=== PATIENT | male | born 1990 | race Caucasian/White ===

== ENCOUNTER 2018-11-22 20:46 | Emergency (ER) | payer OTHER ==
--- NOTE | 2018-11-22 20:57 | PDOC ---
Rapid Medical Evaluation Chief Complaint: Respiratory Time Seen by Provider: 11/22/18 20:55 Medical Evaluation: Allergies Allergy/AdvReac Type Severity Reaction Status Date / Time No Known Allergies Allergy Verified 11/29/12 07:24 11/22/18 20:56 I have performed a brief in person evaluation of this patient. CC: Fever HPI: Pt is a 28 YO male who states he had an abrupt onset of fever and myalgias. Did not receive influenza vaccination. Motrin 400 mg at 1999. No Tylenol. PE: Skin: Clear Lungs: Clear Heart:RRR MS: Moves all extremities without difficulty Neuro: Alert and oriented Psych: Appropriate affect I have ordered the following: Influenza swab Pt will proceed to [facility] for further evaluation. Discharge Disposition - Diagnosis Fever Qualifiers: Fever type: due to other condition Qualified Code(s): R50.81 - Fever presenting with conditions classified elsewhere - Referrals - Patient Instructions - Post Discharge Activity
[2018-11-22 21:01] VITALS: BMI 33.4
[2018-11-22] MEDS ORDERED: SODIUM CHLORIDE 0.9% 500 ML INFUS.BAG IV ONE ×2 (21:12→21:31)
[2018-11-22] MEDS ORDERED: ACETAMINOPHEN 1000 MG/100 ML VIAL (NON FORMULARY) IVPB ONE (21:12)
--- NOTE | 2018-11-22 21:12 | PDOC ---
History of Present Illness - General Chief Complaint: Respiratory Stated Complaint: FEVER CHILLS Time Seen by Provider: 11/22/18 20:55 - History of Present Illness Initial Comments: 11/22/18 21:12 The patient is a 28 year old male with no reported significant PMH who presents to our ED c/o 3 day h/o fever (Tmax 104) and sore throat. States he has been taking Motrin (400 mg) once or twice daily for his fever but as his symptoms persisted he decided to come to the ED. Endorses h/o non-productive cough for 1 -2 weeks duration. Tolerating PO intake.The patient not receive the Influenza vaccine this year. Notes onset of his symptoms followed an evening of binge drinking. The patient denies chest pain, shortness of breath abdominal pain, nausea/ vomiting, diarrhea/constipation, dysuria/hematuria, recent travels or sick contacts. NKDA Surgical: none reported Social: daily marijuana, binge alcohol, denies other toxic habits PMD: Dr. Rendon As per EMR patient last evaluated in 2012 for finger laceration Past History - Past Medical History Allergies/Adverse Reactions: Allergies Allergy/AdvReac Type Severity Reaction Status Date / Time No Known Allergies Allergy Verified 11/22/18 21:01 Home Medications: Ambulatory Orders NK [No Known Home Medication] 11/22/18 Anemia: No Asthma: No Cancer: No Cardiac Disorders: No CVA: No COPD: Yes CHF: No Dementia: No Diabetes: No GI Disorders: No Disorders: No HTN: No Hypercholesterolemia: No Liver Disease: No Seizures: No Thyroid Disease: No - Surgical History Abdominal Surgery: No Appendectomy: Yes Cardiac Surgery: No Cholecystectomy: No Lung Surgery: No Neurologic Surgery: No Orthopedic Surgery: No - Immunization History Immunization Up to Date: Yes - Suicide/Smoking/Psychosocial Hx Smoking Status: Yes Smoking History: Never smoked Have you smoked in the past 12 months: No Number of Cigarettes Smoked Daily: 1 Information on smoking cessation initiated: No Hx Alcohol Use: Yes Drug/Substance Use Hx: Yes Review of Systems - Review of Systems Constitutional: Yes: Fever HEENTM: Yes: Throat Pain. No: Recent change in vision Respiratory: Yes: Cough. No: Shortness of Breath, Productive cough, Hemoptysis Cardiac (ROS): No: Chest Pain, Lightheadedness, Palpitations, Syncope ABD/GI: No: Constipated, Diarrhea, Nausea, Vomiting, Abdominal cramping *Physical Exam - Vital Signs Last Vital Signs Temp Pulse Resp BP Pulse Ox 102.5 F H 132 H 18 125/59 L 97 11/22/18 20:57 11/22/18 20:57 11/22/18 20:57 11/22/18 20:57 11/22/18 20:57 - Physical Exam General Appearance: Yes: Nourished, Appropriately Dressed HEENT: positive: Normal Voice, Hearing Grossly Normal Neck: positive: Trachea midline, Supple Respiratory/Chest: positive: Lungs Clear, Normal Breath Sounds Cardiovascular: positive: S1, S2. negative: Edema, JVD, Murmur Gastrointestinal/Abdominal: positive: Normal Bowel Sounds, Soft Musculoskeletal: negative: CVA Tenderness (R), CVA Tenderness (L) Extremity: positive: Normal Capillary Refill, Normal Inspection Integumentary: positive: Normal Color, Dry, Warm, Diaphoresis Neurologic: positive: Fully Oriented, Alert Moderate Sedation - Procedure Monitoring Vital Signs: Procedure Monitoring Vital Signs Temperature 102.5 F H 11/22/18 20:57 Pulse Rate 132 H 11/22/18 20:57 Respiratory Rate 18 11/22/18 20:57 Blood Pressure 125/59 L 11/22/18 20:57 O2 Sat by Pulse Oximetry (%) 97 11/22/18 20:57 ED Treatment Course - LABORATORY CBC & Chemistry Diagram: 11/22/18 22:45 11/22/18 22:45 Medical Decision Making - Medical Decision Making 11/22/18 21:32 28 year old male w/fever, possibly under medicating for fever. Febrile (102.4 ) and Tachycardic (132) @ presentation. Frontal diagnosis: Influenza A/B, Viral Syndrome less likely PNA, UTI. Consider pulmonary embolism, however patient's clinical history and presentation make this diagnosis less likely and will refrain from CTA at this time. Will give Tylenol, IV hydration, CXR, blood cultures. Reassess. 11/22/18 21:46 Influenza A/B negative Strep negative 11/22/18 23:24 CBC unremarkable CMP, CXR pending 11/23/18 00:17 CMP shows ALT 277, AST 110 - likely 2/2 to recent alcohol binge drinking My read of CXR shows no consolidation/infiltrate, clear costophrenic angles, no cardiomegaly 11/23/18 00:20 Patient reassessed @ bedside. Symptomatically improved. At this time patient is safe for discharge home and symptomatic care for fever. Will call with positive blood cultures, though low clinical suspicion. Clinical Impression: Viral Syndrome *DC/Admit/Observation/Transfer Diagnosis at time of Disposition: Fever Qualifiers: Fever type: due to other condition Qualified Code(s): R50.81 - Fever presenting with conditions classified elsewhere - Discharge Dispostion Disposition: HOME Condition at time of disposition: Good - Referrals Referrals: Marcell Suggs MD [Primary Care Provider] - - Patient Instructions Printed Discharge Instructions: DI for Fever (Symptom) -- Adult Additional Instructions: You can take Tylenol (up to 4000 mg daily) alternating with Motrin (up to 3200 mg daily in 800 mg increments) for fever. Drink plenty of fluids and practice good hand washing hygiene. Follow up with your primary care doctor in the next 3 days. Your care is not complete until you are evaluated by your primary care doctor. Return to the Emergency Department for any new/worsening/concerning symptoms. - Post Discharge Activity
--- NOTE | 2018-11-22 21:13 | PDOC ---
Attending Attestation - HPI HPI: 11/22/18 21:47 The patient is a 28 year old male with no PMH who presents to the ED with fever and sore throat. He states he has been taking Motrin at home but noticed the fever persisted prompting him to come to the ER for an evaluation. Patient has a fever of 102.5 here in the ER. The patient denies chest pain, shortness of breath, headache and dizziness. Denies chills, nausea, vomit, diarrhea and constipation. Denies dysuria, frequency, urgency and hematuria. Allergies: NKA Past surgical history: None reported. Social history: No reported alcohol, drug or cigarette use. PCP: Dr. Rendon - Physicial Exam PE: 11/22/18 21:52 Agree with resident's exam. <Vioelta Doll - Last Filed: 11/22/18 21:52> - Resident Resident Name: Marychuy Neville - ED Attending Attestation I have performed the following: I have examined & evaluated the patient, The case was reviewed & discussed with the resident, I agree w/resident's findings & plan - Medical Decision Making 11/22/18 22:26 28-year-old male with fever dry cough and sore throat Incidental finding of a superficial burn to the uvula noted on exam Rapid strep and influenza swabs negative Due to persistent fever, basic labs as well as blood cultures and chest x-ray ordered IV fluid normal saline 1 L bolus given Plan for likely discharged home pending results <Meliza Sutherland - Last Filed: 11/22/18 22:27>
[2018-11-22] MEDS ORDERED: ACETAMINOPHEN INJECTION 100 ML IVPB ONE (22:55)
[2018-11-22 22:57] LABS: BASO % 0.6 % (0-2.0); EOS % 0.4 % (0-4.5); HEMATOCRIT 47.6 % (35.4-49); HEMOGLOBIN 16.8 GM/dL (11.7-16.9); MCH 31.8 pg (25.7-33.7); MCHC 35.2 g/dl (32.0-35.9); MEAN CELL VOLUME 90.1 fl (80-96); MEAN PLT VOLUME 8.5 fl (7.5-11.1); MONO % 13.4 % (3.8-10.2); NEUT % 70.6 % (42.8-82.8); PLATELET COUNT 256 K/MM3 (134-434); RBC 5.28 M/mm3 (4.00-5.60); RDW 13.6 % (11.9-15.9); WHITE BLOOD COUNT 9.5 K/mm3 (4.0-10.0)
[2018-11-22 23:37] LABS: ALBUMIN 4.3 g/dl (3.4-5.0); ALK PHOS 127 U/L (45-117); BILIRUBIN,TOTAL 0.4 mg/dL (0.2-1); BLOOD UREA NITROGEN 11 mg/dL (7-18); CHLORIDE 101 mmol/L (98-107); CO2 28 mmol/L (21-32); CREATININE 1.2 mg/dL (0.55-1.3); GLUCOSE,RANDOM 91 mg/dL (74-106); SGPT/ALT 277 U/L (13-61); SODIUM 136 mmol/L (136-145); TOT PROT 8.3 g/dl (6.4-8.2)
[2018-11-22 23:38] LABS: ANION GAP 8 MMOL/L (8-16); POTASSIUM 4.4 mmol/L (3.5-5.1); SGOT/AST 110 U/L (15-37)
[2018-11-23 00:25] VITALS: BP 117/72; PULSE 90; TEMP 98.8
== END 2018-11-23 00:41 | disposition home or self-care (01) ==
LOC: JER 20:46
PROC: 3E033NZ Introduction of Analgesics, Hypnotics, Sedatives into Peripheral Vein, Percutaneous Approach (ICD-10-PCS; principal; 2018-11-22)
DX: R50.9 Fever, unspecified (principal)
CPT/HCPCS: 36415; 71046-TC-FY; 80053; 85025; 87040; 87070; 87804; 87880; 96374; 99284-25; J0131

== ENCOUNTER 2019-01-31 15:22 | Emergency (ER) | payer OTHER ==
--- NOTE | 2019-01-31 15:26 | PDOC ---
Rapid Medical Evaluation Chief Complaint: Pain Time Seen by Provider: 01/31/19 15:24 Medical Evaluation: Allergies Allergy/AdvReac Type Severity Reaction Status Date / Time No Known Allergies Allergy Verified 11/22/18 21:01 01/31/19 15:25 I have performed a brief in person evaluation at triage on this patient. CC: left fourth digit discomfort HPI: Pt states that he "dislocated his ring finger"/4th digit left hand. PE: Skin: clear Lungs: clear Heart: RRR MS: Pt has deformity to the distal aspect of the fourth digit left hand. Neuro: Alert and oriented Psych: Appropriate affect I have ordered: pt has an xray on disk from earlier today. Pt will proceed to [facility] for further evaluation. Discharge Disposition - Diagnosis Finger pain, left - Referrals - Patient Instructions - Post Discharge Activity
[2019-01-31 15:27] VITALS: BP 144/93; PULSE 73; TEMP 98.4; BMI 34.9
--- NOTE | 2019-01-31 15:46 | PDOC ---
History of Present Illness - General Chief Complaint: Pain Stated Complaint: DISLOCATED FINGER Time Seen by Provider: 01/31/19 15:24 History Source: Patient (L 4th digit dislocation X 1 month s/p fall) Exam Limitations: No Limitations Past History - Travel Traveled outside of the country in the last 30 days: No Close contact w/someone who was outside of country & ill: No - Past Medical History Allergies/Adverse Reactions: Allergies Allergy/AdvReac Type Severity Reaction Status Date / Time No Known Allergies Allergy Verified 11/22/18 21:01 Home Medications: Ambulatory Orders NK [No Known Home Medication] 11/22/18 Anemia: No Asthma: No Cancer: No Cardiac Disorders: No CVA: No COPD: No CHF: No Dementia: No Diabetes: No GI Disorders: No Disorders: No HTN: No Hypercholesterolemia: No Liver Disease: No Seizures: No Thyroid Disease: No - Surgical History Abdominal Surgery: No Appendectomy: Yes Cardiac Surgery: No Cholecystectomy: No Lung Surgery: No Neurologic Surgery: No Orthopedic Surgery: No - Immunization History Immunization Up to Date: Yes - Suicide/Smoking/Psychosocial Hx Smoking Status: Yes Smoking History: Current some day smoker Have you smoked in the past 12 months: No Number of Cigarettes Smoked Daily: 1 Information on smoking cessation initiated: No Hx Alcohol Use: Yes Drug/Substance Use Hx: Yes Review of Systems - Review of Systems Constitutional: No: Chills, Fever Musculoskeletal: No: Joint Pain, Joint Swelling, Muscle Weakness, Joint Stiffness (L4th digit deformity) *Physical Exam - Vital Signs Last Vital Signs Temp Pulse Resp BP Pulse Ox 98.4 F 73 18 144/93 99 01/31/19 15:25 01/31/19 15:25 01/31/19 15:25 01/31/19 15:25 01/31/19 15:25 - Physical Exam General Appearance: Yes: Nourished Extremity: positive: Normal Capillary Refill, Other (obvious deformity noted in the L 4th DIP joint, + no open laceration, unable to flex DIP, cap refill intact ) Medical Decision Making - Medical Decision Making 01/31/19 15:41 28y/o M R hand dominant sent by PCP for finger reduction. Pt reports he fell a month ago, denies LOC or head trauma L 4th finger with obvious deformity in the distal aspect of finger xray confirming dislocation attempted reduction but unsuccessful, finger splint applied Pt will need ortho evaluation as outpt for possible open reduction 01/31/19 18:58 *DC/Admit/Observation/Transfer Diagnosis at time of Disposition: Finger dislocation Qualifiers: Encounter type: initial encounter Qualified Code(s): S63.259A - Unspecified dislocation of unspecified finger, initial encounter - Discharge Dispostion Disposition: HOME Condition at time of disposition: Stable Decision to Admit order: No - Referrals Referrals: Miguel Menon MD [Staff Physician] - - Patient Instructions Additional Instructions: Your hand xray showed a finger dislocation Given the timely of event, I was unable to reduce the finger today please followup with orthopedic this week for evaluation Keep finger splint on until cleared by orthopedic Return to the Emergency Department if worsening symptoms occurs. - Post Discharge Activity
== END 2019-01-31 16:00 | disposition home or self-care (01) ==
LOC: JERFT 15:22
PROC: 0RSXXZZ Reposition Left Finger Phalangeal Joint, External Approach (ICD-10-PCS; principal; 2019-01-31)
DX: S63.295A Dislocation of distal interphalangeal joint of left ring finger, initial encounter (principal); W19.XXXA Unspecified fall, initial encounter; Y93.89 Activity, other specified; Y92.89 Other specified places as the place of occurrence of the external cause; Y99.8 Other external cause status
CPT/HCPCS: 26770; 99281-25

== ENCOUNTER 2022-06-16 16:43 | Emergency (ER) | payer OTHER ==
[2022-06-16 16:51] VITALS: BMI 33.4
[2022-06-16] MEDS ORDERED: ACETAMINOPHEN 325 MG TABLET (FP) PO ONE (17:39)
[2022-06-16] MEDS ORDERED: ACETAMINOPHEN 325 MG TABLET (FP) ONE (18:06)
[2022-06-16] MEDS ORDERED: ONDANSETRON *ODT* 4 MG TABLET SL ONE (19:20)
[2022-06-16] MEDS ORDERED: ONDANSETRON *ODT* 4 MG TABLET ONE (19:25)
[2022-06-16] MEDS ORDERED: IBUPROFEN 400 MG TABLET (FP) PO ONE ×2 (19:26→19:42)
[2022-06-16 20:02] VITALS: BP 135/73; PULSE 98; RESP 14; TEMP 100
== END 2022-06-16 20:40 | disposition home or self-care (01) ==
LOC: FER 16:43
DX: J02.9 Acute pharyngitis, unspecified (principal); R50.9 Fever, unspecified; R51.9 Headache, unspecified; M79.10 Myalgia, unspecified site
CPT/HCPCS: 0241U-QW; 71045-TC-FY; 87651; 99284-25; Q0162